=== PATIENT | female | born 1965 | race Caucasian/White ===

== ENCOUNTER 2018-05-13 16:14 | Emergency (ER) | payer MEDICARE, MEDICAID ==
[~2018-05-13] VITALS: Ht 170.2 cm; Wt 88.6 kg
[~2018-05-13 16:14] MED LIST: ADV50500 IH; ALB0.5UD IH; ATOR80TA PO; CLOP75TA35 PO; FLUO20CA39 PO; FLUT16SP2 NS; HYDR-3686 PO; LEVA15HF4 IH; LIDO1ADH TP; LOSA25TA96 PO; METO50TA16 PO; MONT10TA21 PO; NORCO10T PO; OMEP-84 PO; PRED10TA23 PO; PRIM50TA31 PO; TIOT18CA7 IH; TOP100T PO; VORT10TA PO
[2018-05-13 16:49] LABS: BASOPHILS # (AUTO) 0.1 X10'3 (0-0.2); BASOPHILS % (AUTO) 0.6 % (0-1); EOSINOPHILS # (AUTO) 0.1 X10'3 (0-0.9); HEMATOCRIT 41.7 % (35.0-45.0); HEMOGLOBIN 13.9 g/dl (12.0-16.0); LYMPHOCYTES # (AUTO) 3.5 X10'3 (1.1-4.8); LYMPHOCYTES % (AUTO) 38.6 % (21-51); MEAN CORPUSCULAR HGB CONC 33.2 % (33.0-36.5); MEAN CORPUSCULAR VOLUME 93.2 FL (78-98); MEAN PLATELET VOLUME 7.9 FL (7.4-10.4); MONOCYTES # (AUTO) 0.6 X10'3 (0-0.9); MONOCYTES % (AUTO) 6.7 % (2-12); NEUTROPHILS # (AUTO) 4.8 X10'3 (1.8-7.7); NEUTROPHILS % (AUTO) 53.1 % (42-75); PLATELET COUNT 311 X10'3 (140-440); RED BLOOD COUNT 4.47 X10'6 (4.20-5.60); RED CELL DISTRIBUTION WIDTH 14.7 % (11.5-14.5)
[2018-05-13 17:04] LABS: ALANINE AMINOTRANSFERASE 47 U/L (12-78); ALBUMIN 3.9 G/DL (3.4-5.0); ALKALINE PHOSPHATASE 89 IU/L (46-116); ANION GAP 12 (8-16); ASPARTATE AMINO TRANSFERASE 16 U/L (10-37); BILIRUBIN,TOTAL 0.3 MG/DL (0.1-1.0); BLOOD UREA NITROGEN 22 MG/DL (7-18); BUN/CREATININE RATIO 24.2 (6.6-38.0); CALCIUM 9.1 MG/DL (8.5-10.1); CHLORIDE 104 MMOL/L (99-107); CREATININE 0.91 MG/DL (0.40-0.90); GLUCOSE 107 MG/DL (70-104); POTASSIUM 3.5 MMOL/L (3.5-5.1); SODIUM 141 MMOL/L (135-145); TOTAL CARBON DIOXIDE 25.1 MMOL/L (24-32); TOTAL PROTEIN 7.7 G/DL (6.4-8.2); eGFR 64 ML/MIN
[2018-05-13] MEDS ORDERED: ipratropium/albuterol 3ml nebule NEB ONE (17:30)
[2018-05-13] MEDS ORDERED: iohexol 350MG/ML 100ml bottle IV ONE (17:34)
[2018-05-13 18:12] LABS: D-DIMER < 0.19 MG/L FEU (0-0.50)
[2018-05-13 19:26] VITALS: BP 109/69
== END 2018-05-13 19:29 | disposition home or self-care (01) ==
LOC: ER 16:15
DX: J44.9 Chronic obstructive pulmonary disease, unspecified (principal); R06.02 Shortness of breath; F17.200 Nicotine dependence, unspecified, uncomplicated; G43.909 Migraine, unspecified, not intractable, without status migrainosus; E78.00 Pure hypercholesterolemia, unspecified; I10 Essential (primary) hypertension; K21.9 Gastro-esophageal reflux disease without esophagitis; G89.29 Other chronic pain; Z98.890 Other specified postprocedural states; Z86.73 Personal history of transient ischemic attack (TIA), and cerebral infarction without residual deficits; Z88.1 Allergy status to other antibiotic agents; Z88.6 Allergy status to analgesic agent; Z88.8 Allergy status to other drugs, medicaments and biological substances; Z79.899 Other long term (current) drug therapy
CPT/HCPCS: 36415; 71046; 80053; 83605; 84484; 85025; 85379; 87040; 93005; 94640; 94760; 99284; Q9967

== ENCOUNTER 2024-11-22 14:59 | Outpatient (CLI) | payer MEDICARE, MEDICAID ==
[~2024-11-22 14:59] MED LIST changes: +ATOR-429 PO; -ATOR80TA PO; +CLOP75TA34 PO; -CLOP75TA35 PO; +LOSA-415 PO; -LOSA25TA96 PO; +MONT-48 PO; -MONT10TA21 PO
--- NOTE | 2024-11-22 16:29 | RADIOLOGY REPORT ---
EXAM: DI KNEE, COMP 4 VW MIN CLINICAL INDICATION: BILAT KNEE PAIN TECHNIQUE: DI KNEE, COMP 4 VW MIN Comparison: None FINDINGS/IMPRESSION: There is no evidence of acute fracture or dislocation. The visualized joint space is well maintained. The alignment is anatomical. There is no radiopaque foreign body.
--- NOTE | 2024-11-22 16:30 | RADIOLOGY REPORT ---
EXAM: DI KNEE, COMP 4 VW MIN CLINICAL INDICATION: BILAT KNEE PAIN TECHNIQUE: DI KNEE, COMP 4 VW MIN Comparison: None FINDINGS/IMPRESSION: There is no evidence of acute fracture or dislocation. Mild right OA joint space narrowing The alignment is anatomical. There is no radiopaque foreign body.
== END 2024-11-22 23:59 | disposition home or self-care (01) ==
LOC: RAD 14:59
PROVIDERS: ATTEND Internal Medicine
DX: M17.11 Unilateral primary osteoarthritis, right knee (principal); M25.561 Pain in right knee
CPT/HCPCS: 73564

== ENCOUNTER 2025-02-13 13:35 | Outpatient (CLI) | payer MEDICARE, MEDICAID ==
[~2025-02-13 13:35] MED LIST changes: -FLUO20CA39 PO; +FLUO20CA41 PO
--- NOTE | 2025-02-14 08:25 | RADIOLOGY REPORT ---
CLINICAL INDICATION: PAIN IN RIGHT SHOULDER COMPARISON: None TECHNIQUE: Multiplanar, multisequence MRI of the right shoulder was performed without contrast. Contrast: None FINDINGS: Glenohumeral joint: There is no fracture or bone marrow edema. Alignment is maintained. No focal a rticular cartilage defect. There is no joint effusion or synovitis. Acromioclavicular joint: The acromioclavicular joint is narrowed with capsular hypertrophy. There is a type 1 acromion. Rotator cuff and bursae: There is severe supraspinatus tendon thickening and T2 hyperintensity repres enting tendinosis. There is a partial-thickness articular surface tear at the posterior footprint and a possible bursal surface tear more anteriorly. Severe infraspinatus tendinosis is present with par tial-thickness articular surface tear. The subscapularis and teres minor tendons are intact. There is no regional muscle atrophy. There is fluid distention of the subacromial subdeltoid bursa. Biceps tendon and glenoid labrum: The long head biceps tendon is located within the bicipital groove and intact. There is degeneration and tear of all segments of the glenoid labrum. IMPRESSION: 1. Severe supraspinatus and infraspinatus tendinosis with partial-thickness articular surface and bur shellie surface tears. No full-thickness rotator cuff tear in the right shoulder. 2. Severe degeneration and tear of the superior labrum. 3. Acromioclavicular joint osteoarthritis. 4. Subacromial subdeltoid bursitis.
== END 2025-02-13 23:59 | disposition home or self-care (01) ==
LOC: MRI02 13:35
PROVIDERS: ATTEND Internal Medicine
DX: S43.431A Superior glenoid labrum lesion of right shoulder, initial encounter (principal); M75.111 Incomplete rotator cuff tear or rupture of right shoulder, not specified as traumatic; M19.011 Primary osteoarthritis, right shoulder; M75.51 Bursitis of right shoulder; M25.511 Pain in right shoulder; M25.811 Other specified joint disorders, right shoulder; M75.81 Other shoulder lesions, right shoulder; X58.XXXA Exposure to other specified factors, initial encounter; Y93.89 Activity, other specified; Y92.89 Other specified places as the place of occurrence of the external cause; Y99.8 Other external cause status
CPT/HCPCS: 73221